=== PATIENT | female | born 1950 | race Caucasian/White ===

== ENCOUNTER → 2020-01-20 16:13 | Outpatient (CLI) | payer MEDICARE, MEDICAID, SELFPAY ==
--- NOTE | 2020-01-20 16:23 | CT_ITS ---
STUDY: CT ABDOMEN AND PELVIS WITHOUT CONTRAST REASON FOR EXAM: Female, 69 years old. KIDNEY STONE RADIATION DOSAGE (If Supplied By Facility): CTDIvol = ( 6.04 ) mGy, DLP = ( 262.73 ) mGycm TECHNIQUE: Transaxial images were obtained from the dome of the diaphragm to the symphysis pubis without oral contrast, and without intravenous contrast. Sagittal and coronal images were reconstructed. Individualized dose optimization techniques were used for this CT. COMPARISON: None. FINDINGS: Bilateral basilar atelectasis. Heart is probably enlarged with coronary artery calcifications. Normal liver. Normal gallbladder and extrahepatic biliary system. Normal spleen. Somewhat tubular shape of the visualized pancreas, cannot exclude autoimmune pancreatitis. Otherwise pancreatic region are unremarkable. The colon is located along the anterolateral right aspect of the liver. Normal bilateral adrenal glands. Severe dystrophy of the right kidney with extensive calcifications in the central portion and the corresponding to the region and proximal ureter. Extensive calcifications along the distribution of the medullary pyramids on the left which may indicate underlying medullary nephrocalcinosis. Left upper renal pole cyst measuring 1.8 x 2.0 cm. Left lower renal pole stone measuring 7.3 mm. The left ureter is unremarkable. Decompressed stomach, otherwise stomach unremarkable. Normal small intestine. Borderline thickening of the wall throughout the distal colon, cannot exclude mild distal colitis. There is non-visualization of the appendix. There is diffuse atherosclerotic calcification of the abdominal aorta, without a demonstrated aneurysm. Normal inferior vena cava. Normal retroperitoneum. Nodularity at the superior aspect of the urinary bladder wall which may indicate small calcification, cannot exclude a small lesion. Normal abdominal wall. Scoliosis of thoracolumbar spine, convexity to the left. Anterolisthesis of L5 on S1. CT/Abdomen/Pelvis without Cont IMPRESSION: Dystrophy of the right kidney with extensive large calcifications occupying the renal pelvis, collecting system and proximal right ureter. Left-sided medullary nephrocalcinosis with left lower renal pole stone as described above. No significant left-sided hydronephrosis seen. Cannot exclude distal colitis, clinical correlation recommended. Electronically Signed: Shani Cox MD at 0:32 EDT , Service support ,
== END ==
PROVIDERS: PCP Family Medicine; Visit Provider Nurse Practitioner Adult Health
DX: N20.0 Calculus of kidney (principal)
CPT/HCPCS: 74176

== ENCOUNTER → 2020-07-20 14:51 | Outpatient (CLI) | payer MEDICARE, MEDICAID, SELFPAY ==
--- NOTE | 2020-07-20 15:05 | CT_ITS ---
STUDY: CT ABDOMEN AND PELVIS WITHOUT CONTRAST REASON FOR EXAM: Female, 70 years old. Kidney stone, patient is non-verbal but caregiver states she acts uncomfortable, ? UTI. Hx right kidney stones with non-functioning right kidney. RADIATION DOSAGE (If Supplied By Facility): CTDIvol = ( 5.88 ) mGy, DLP = ( 253.01 ) mGycm TECHNIQUE: Transaxial images were obtained from the dome of the diaphragm to the symphysis pubis without oral contrast, and without intravenous contrast. Sagittal and coronal images were reconstructed. Individualized dose optimization techniques were used for this CT. COMPARISON: Comparison is made with prior study dated 01/20/2020. FINDINGS: Stable mild increased markings at the lung bases suggestive of scarring. The visualized portions of the heart are within normal limits. Normal liver. Normal gallbladder and extrahepatic biliary system. Normal spleen. Normal pancreas. Normal bilateral adrenal glands. There is severe cortical atrophy of the right kidney, consistent with chronic medical renal disease. 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 The calculus extends into the proximal and mid ureter over a distance of 6.1 cm. This is unchanged. Heterogeneous appearance of the left kidney with the cortical atrophy and renal cysts. There is evidence of a calculi in the left kidney. These are unchanged. Normal visualized stomach. Normal small intestine. Large amount of fecal material is seen in the colon. The appendix is visualized and appears normal. Normal abdominal aorta. Normal inferior vena cava. Normal retroperitoneum. Faint calcific densities are seen at the base of the bladder more prominent on the left side. This may represent tiny gallstones. Normal abdominal wall. There are diffuse degenerative changes of the visualized lumbar spine. Levoscoliosis. CT/Abdomen/Pelvis without Cont IMPRESSION: Marked atrophy of the right kidney with extensive calcification down to the mid right ureter which is unchanged. Stable appearance of the left kidney with left renal calculi. Small calcifications are seen at the base of the bladder more prominent on the left side. This may represent recently passed stone. Electronically Signed: Rodney Marte, at 15:44 EST , Service support ,
== END ==
PROVIDERS: PCP Family Medicine; Visit Provider Urology
DX: N20.0 Calculus of kidney (principal)
CPT/HCPCS: 74176

== ENCOUNTER 2021-06-09 10:51 | Emergency (ER) | payer MEDICARE, MEDICAID, SELFPAY ==
[2021-06-09 10:54] VITALS: BP 93/62; PULSE 64; RESP 15; TEMP 36.4; O2SAT 96; BMI 19.8
--- NOTE | 2021-06-09 11:09 | RAD_ITS ---
STUDY: X-RAY - ABDOMEN/PELVIS REASON FOR EXAM: Female, 71 years old. NG Insertion TECHNIQUE: Single AP view of the abdomen / pelvis. COMPARISON: None. FINDINGS: A nasogastric tube has been placed. The tip is in the body of the stomach. Gas is seen within a nondilated colon and small bowel loops. Possible 8.7 mm calculus in the right renal pelvis. Normal soft tissue structures. Osteopenia of the visualized thoracic and lumbar vertebrae. Loss of height of the lower thoracic vertebrae. RAD/Abdomen Single View (Portable) IMPRESSION: The tip of the nasogastric tube is in the body of the stomach. Gas is seen within a nondilated colon and small bowel. Questionable 8.7 mm calculus in the right renal pelvis. Electronically Signed: Rodney Marte MD at 12:55 EDT , Service support ,
--- NOTE | 2021-06-09 12:24 | EX.ED.DYSGE1 ---
HPI History of Present Illness Chief Complaint: Other, Pain/Inj Narrative Narrative: Patient was recently discharged from a different hospital to a local retirement, she was not eating at the hospital so she was given an NG tube for feeding purposes, and she was sent here to get a new one because she pulled it out at the retirement. The patient is nonverbal, is not agitated but does not follow commands. [facility] Medical History Achondroplasia Anemia Candidiasis Constipation Developmental speech or language disorder Hydronephrosis concurrent with and due to calculi of kidney and ureter Kidney failure Osteoporosis Pyelonephritis Home Medications alendronate 70 mg PO FR 06/09/21 [History Last Taken Unknown] apixaban [Eliquis] 5 mg PO BID 06/09/21 [History Last Taken Unknown] aspirin 81 mg PO DAILY 06/09/21 [History Last Taken Unknown] atorvastatin 20 mg PO DAILY 06/09/21 [History Last Taken Unknown] ferrous sulfate 300 mg PO DAILY 06/09/21 [History Last Taken Unknown] levothyroxine 25 mcg PO DAILY 06/09/21 [History Last Taken Unknown] meropenem 1 g IV BID 06/09/21 [History Last Taken Unknown] Allergy/AdvReac Type Severity Reaction Status Date / Time No Known Allergies Allergy Verified 06/09/21 11:06 Social History Smoking Status: Never smoker EXAM Physical Exam Const Vital Signs: 06/09/21 10:54 06/09/21 11:01 Temperature 97.5 F L Temperature Source Temporal Pulse Rate 64 Respiratory Rate 15 Respiratory Effort Normal Non-Labored Respiratory Pattern Normal Blood Pressure 93/62 Blood Pressure Mean 72 Pulse Ox 96 Oxygen Delivery Method Room Air Positive well nourished and well developed General Appearance ED: well developed and NAD HEENT Reports moist mucous membranes normocephalic and atraumatic Eyes PERRL and EOMs intact bilaterally Neck full ROM and supple Resp normal respiratory effort and clear to auscultation bilaterally Cardio regular rate, regular rhythm and no murmurs Rate: Negative for tachycardic GI non-tender and non-distended Auscultation: normoactive bowel sounds Palpation: soft Back/Spine no CVA tenderness General Back: other FROM Extremity normal to inspection General Extremety ED: Negative for edema, pulses abnormal or tenderness General Extremity: Negative for edema or pulses abnormal Neuro CN's II-XII intact bilaterally and no sensory deficits noted Neuro Narrative: No gross motor deficits. Patient moves all 4 extremities but she does have what appear to be flexion contractures of her lower extremities. Sensorium / Orientation: awake and alert Skin no rashes or lesions noted and no wounds MDM MDM MDM Narrative Medical decision making narrative: Nursing was unable to pass an NG tube through her nares bilaterally. Therefore I did it. Placement was confirmed by auscultation, aspirating stomach contents, and with x-ray. No complications except for some discomfort although she was pretreated with Afrin and lidocaine jelly, the patient is attempting to pull out the tube and is unable to follow commands to leave it alone so I felt we had no choice but to apply soft restraints until we can get her back to the retirement. Radiography Diagnostic Testing: On my interpretation 1 view KUB shows good placement in the stomach. Procedures Other Procedures Procedure(s): NG tube insertion by ED physician. Inserted gently through the right naris, no traumatic bleeding, air heard in the epigastrium and stomach contents is able to be aspirated through the tube, x-ray confirms placement. No complications. Discharge Plan Triage Chief Complaint: Other, Pain/Inj ED Provider: Jayjay Pham Dx/Rx/DC Orders Clinical Impression: Encounter for nasogastric tube placement Instructions: ED Feeding Tube Replacement Prescriptions: No Action atorvastatin 20 mg tablet 20 mg PO DAILY RF: 0 alendronate 70 mg tablet 70 mg PO FR RF: 0 levothyroxine 25 mcg tablet 25 mcg PO DAILY RF: 0 meropenem 1 gram Recon Soln 1 g IV BID RF: 0 ferrous sulfate 300 mg (60 mg iron)/5 mL Liquid 300 mg PO DAILY RF: 0 aspirin 81 mg Tablet 81 mg PO DAILY RF: 0 Eliquis 5 mg Tablet 5 mg PO BID RF: 0 Primary Care Provider: Chava Garcia Referrals: Keaton Coronel MD [STAFF PHYSICIAN] - As Needed Stephanie Barrera MD [NON-STAFF] - Activity Restrictions/Additional Instructions: Patient is wanting to pull out the tube. We recommend getting healthcare power of geophysical laboratory supervisor involved to seek placement of PEG. See surgery referral if needed. Disposition Disposition: Home, Self Care
[2021-06-09] MEDS: Oxymetazoline 0.05% 1 SPRAY SPRAY.BTL 2 SPRAY NASAL (12:33)
[2021-06-09] MEDS: Lidocaine 2% Jelly 1 APPLIC Tube TOPICAL (12:33)
[2021-06-09 13:07] VITALS: BP 108/77; PULSE 62; RESP 15; O2SAT 98
== END 2021-06-09 13:08 | disposition home or self-care (01) ==
LOC: ED 12:36
PROVIDERS: Emergency Provider Emergency Medicine; PCP Family Medicine
DX: Z43.1 Encounter for attention to gastrostomy (principal); Q77.4 Achondroplasia; D64.9 Anemia, unspecified; M81.0 Age-related osteoporosis without current pathological fracture; Z79.01 Long term (current) use of anticoagulants; Z79.82 Long term (current) use of aspirin; Z79.899 Other long term (current) drug therapy
CPT/HCPCS: 74018; 99285; A4216

== ENCOUNTER → 2021-06-20 11:39 | Outpatient (CLI) | payer MEDICARE, MEDICAID, SELFPAY ==
--- NOTE | 2021-06-20 11:44 | RAD_ITS ---
STUDY: X-RAY - ABDOMEN/PELVIS REASON FOR EXAM: Female, 71 years old. CALCULUS OF URETER TECHNIQUE: Frontal portable view of the abdomen COMPARISON: 20 July 2020 FINDINGS: Appearance is similar to prior. There is no intestinal obstruction. There is levoscoliosis of the thoracolumbar junction of approximately 152 degrees. There are no osseous destructive lesions. There is a large elongated 7.5 cm calculus filling the entire right upper collecting system with previously CT documented complete right renal atrophy. There is a 1 cm left renal calculus. RAD/Abdomen Single View IMPRESSION: 1. Stable since prior. 2. 7.5 cm right upper collecting system calculus and right renal atrophy. 3. 1 cm left renal stone. Electronically Signed: Johnna Gonzalez MD at 13:41 EDT Tel , Service support ,
== END ==
PROVIDERS: PCP Family Medicine; Referring Provider Urology; Visit Provider Urology
DX: N20.1 Calculus of ureter (principal)
CPT/HCPCS: 74018